=== PATIENT | male | born 1945 | race Caucasian/White ===

== ENCOUNTER 2023-07-18 15:10 | Outpatient (CLI) | payer MEDICARE, OTHER ==
--- NOTE | 2023-07-18 18:02 | XRAY Report ---
Cervical Spine 2-3V HISTORY: 77 years of age, Cervicalgia TECHNIQUE: Cervical Spine 2-3V COMPARISON: 08/17/2015. FINDINGS/IMPRESSION: Straightening of the cervical spine. Mild dextrocurvature of the cervical spine, which may be partial ly positional. Mild anterolisthesis of C2 on C3, mild retrolisthesis of C5 on C6. Vertebral body heig hts are well-maintained. Multilevel, severe degenerative disc disease of the cervical spine, slightly progressed from prior exam. No prevertebral soft tissue edema. Mild bilateral cervical facet arthrop athy. Median sternotomy wires are noted. Reviewed by: Carmen Hardy MD on 07/18/2023 6:01 PM PDT Approved by: Carmen Hardy MD on 07/18/2023 6:01 PM PDT Station ID: [id number]
== END 2023-07-18 15:11 | disposition home or self-care (01) ==
LOC: DI.N 15:10
PROVIDERS: ATTEND Internal Medicine
DX: M43.12 Spondylolisthesis, cervical region (principal); M50.30 Other cervical disc degeneration, unspecified cervical region; M47.812 Spondylosis without myelopathy or radiculopathy, cervical region